=== PATIENT | female | born 1990 | race Caucasian/White ===

== ENCOUNTER 2016-02-23 10:53 | Emergency (ER) | payer BC ==
[2016-02-23] MEDS ORDERED: HYDROCODONE/ACETAMINOPHEN 5/325MG TABLET ONE (12:07)
[2016-02-23] MEDS ORDERED: ONDANSETRON 4 MG ODT TAB ONE (12:07)
[2016-02-23 12:15] LABS: URINE BILIRUBIN NEGATIVE (NEGATIVE); URINE BLOOD NEGATIVE (NEGATIVE); URINE GLUCOSE (UA) NEGATIVE (NEGATIVE); URINE LEUKOCYTE ESTERASE 2+ (NEGATIVE); URINE NITRITE NEGATIVE (NEGATIVE); URINE PROTEIN NEGATIVE (NEGATIVE); URINE UROBILINOGEN NORMAL (0-1 mg/dl)
[2016-02-23 12:16] LABS: HCG,QUALITATIVE URINE NEGATIVE; URINE APPEARANCE HAZY; URINE COLOR YELLOW
[2016-02-23 12:24] LABS: URINE RBC 0-1 /hpf
[2016-02-23 12:25] LABS: URINE BACTERIA FEW
--- NOTE | 2016-02-23 13:07 | US ---
PELVIC ULTRASOUND HISTORY: Left lower quadrant pain, history of polycystic ovaries. Transabdominal and transvaginal pelvic sonography performed. TRANSABDOMINAL IMAGING UTERINE DIMENSIONS: 6.5 x 2.6 x 5.2 cm. BLADDER: Partly filled. TRANSVAGINAL IMAGING: ENDOMETRIAL THICKNESS: 5 mm. FOCAL UTERINE LESIONS: Heterogeneous appearance. In the cervix notice made of an echogenic focus which measures 6 x 5 x 4 mm in size, polyp formation is possible. RIGHT OVARY: 3.3 x 2.3 x 2.2 cm for a volume of 8.5 cc. LEFT OVARY: 3.7 x 2.9 x 2.8 cm for volume of 15.6 cc. OVARIAN BLOOD FLOW: Documented bilaterally. DOMINANT ADNEXAL LESIONS: No dominant lesions. 1.5 cm simple cyst on the left, likely physiologic. Increased number of follicles bilaterally. FREE FLUID: None. IMPRESSION: No endometrial thickening, free fluid, or dominant adnexal lesion. Ovarian blood flow is confirmed bilaterally. Echogenic focus of the cervix, possible polyp, recommend direct inspection. Results were electronically transmitted to the electronic medical record at 02/23/2016 at 1303 hours.
[2016-02-25 14:27] LABS: CHLAMYDIA BD Negative (Negative); SOURCE Urine (())
== END 2016-02-23 14:39 | disposition home or self-care (01) ==
LOC: ED 10:53
DX: R10.2 Pelvic and perineal pain (principal); F17.210 Nicotine dependence, cigarettes, uncomplicated
CPT/HCPCS: 87491; 81025; 87081; 81001; 87210; 76856; 76830; 99284; 99283; A9270 ×2